=== PATIENT | female | born 1995 | race African-American/Black ===

== ENCOUNTER 2019-06-09 20:29 | Emergency (ER) | payer OTHER ==
[~2019-06-09] VITALS: Ht 160 cm; Wt 77.0 kg
[~2019-06-09 20:29] MED LIST: PREN-88 PO
[2019-06-09 20:51] VITALS: BP 128/62
[2019-06-09 23:59] LABS: CLARITY URINE CLOUDY (CLEAR); COLOR URINE YELLOW (YELLOW); KETONES URINE NEGATIVE (NEGATIVE); LEUKOCYTE ESTERASE URINE NEGATIVE (NEGATIVE); NITRITE URINE NEGATIVE (NEGATIVE); OCCULT BLOOD URINE NEGATIVE (NEGATIVE); PROTEIN URINE TRACE (NEGATIVE); SPECIFIC GRAVITY URINE 1.028 (1.005-1.030)
== END 2019-06-10 00:24 | disposition left against medical advice (07) ==
LOC: ER 20:29
DX: R51 Headache (principal); Z53.21 Procedure and treatment not carried out due to patient leaving prior to being seen by health care provider
CPT/HCPCS: 81003; 81025

== ENCOUNTER 2019-07-28 17:15 | Emergency (ER) | payer MEDICAID, OTHER ==
[~2019-07-28] VITALS: Ht 162.6 cm; Wt 81.6 kg
[2019-07-28 19:30] VITALS: BP 109/66
== END 2019-07-28 21:00 | disposition home or self-care (01) ==
LOC: ER 17:15
DX: T19.2XXA Foreign body in vulva and vagina, initial encounter (principal); X58.XXXA Exposure to other specified factors, initial encounter; Y93.89 Activity, other specified; Y92.89 Other specified places as the place of occurrence of the external cause; Y99.8 Other external cause status
CPT/HCPCS: 81025; 99284

== ENCOUNTER 2020-01-14 18:28 | Emergency (ER) | payer MEDICAID, OTHER ==
[~2020-01-14] VITALS: Ht 160 cm; Wt 77.0 kg
[2020-01-14 18:28] VITALS: BP 99/74
== END 2020-01-14 21:16 | disposition left against medical advice (07) ==
LOC: ER 18:28
DX: Z53.21 Procedure and treatment not carried out due to patient leaving prior to being seen by health care provider (principal)

== ENCOUNTER 2025-04-29 09:11 | Emergency (ER) | payer OTHER ==
[~2025-04-29] VITALS: Ht 162.6 cm; Wt 77.0 kg
[2025-04-29 09:21] VITALS: O2SAT 98
[2025-04-29 09:47] LABS: BASOPHILS % 1.2 % (0.0-2.0); EOSINOPHILS % 0.7 % (0.0-5.0); HEMATOCRIT. 40.5 % (36.0-48.0); HEMOGLOBIN. 13.7 g/dL (12.0-16.0); LYMPHOCYTES % 26.8 % (20.0-50.0); MEAN PLATELET VOLUME 7.5 fl (7.4-10.4); MONOCYTES % 5.7 % (2.0-8.0); NEUTROPHILS % 65.6 % (40.0-76.0); PLATELET 305 x1000/uL (130-400); RED BLOOD CELL COUNT 4.52 mill/uL (4.2-5.4); RED CELL DISTRIBUTION WIDTH 13.2 % (11.6-14.6)
[2025-04-29 09:56] LABS: CREATININE 0.7 mg/dL (0.6-1.0)
[2025-04-29 09:57] LABS: PROTEIN TOTAL 7.9 g/dL (6.0-8.3); UREA NITROGEN BLOOD 7 mg/dL (9-23)
[2025-04-29 09:58] LABS: ASPARTATE AMINOTRANSFERASE 19 IU/L (<34)
[2025-04-29 09:59] LABS: BILIRUBIN DIRECT 0.1 mg/dL (<=3.0); BILIRUBIN TOTAL 0.5 mg/dL (0.1-1.0)
[2025-04-29 10:08] LABS: HCG SCREEN NEGATIVE
[2025-04-29] MEDS: MAGNESIUM/ALUMINUM HYDROXIDE/SIMETHICONE 30ML UDC PO ONE (10:32)
[2025-04-29] MEDS: SODIUM CHLORIDE 0.9% 1,000 ML IV ONE (10:32)
[2025-04-29] MEDS: ONDANSETRON HCL 4MG/2ML INJ IV ONE (10:34)
[2025-04-29] MEDS ORDERED: ONDA-239 PO (10:55)
[2025-04-29 11:20] VITALS: BP 112/59; PULSE 64; RESP 18; TEMP 36.7; O2SAT 98
== END 2025-04-29 11:15 | disposition home or self-care (01) ==
LOC: ER 09:11
DX: R11.2 Nausea with vomiting, unspecified (principal)
CPT/HCPCS: 99283; 96374; 96361; 80076; 80048; 84703; 83690; 85025; 36415; J2405; J7030